=== PATIENT | female | born 1950 | race Caucasian/White ===

== ENCOUNTER 2022-11-01 08:14 | Outpatient (CLI) | payer OTHER | END 2022-11-01 18:54 | disposition home or self-care (01) | LOC: SRD 08:14 | PROVIDERS: ATTEND Family Medicine | DX: I10 Essential (primary) hypertension (principal); I70.0 Atherosclerosis of aorta; Z87.01 Personal history of pneumonia (recurrent) | CPT/HCPCS: 78580; 71046; 78579; A9539; A9540 ==

== ENCOUNTER 2023-03-15 11:56 | Emergency (ER) | payer OTHER ==
[~2023-03-15] VITALS: Ht 167.6 cm; Wt 72.6 kg
[2023-03-15 12:02] VITALS: BP_SYST 145; PULSE 85; RESP 18; TEMP 98.3; O2SAT 98
--- NOTE | 2023-03-15 12:02 | NUR ---
Placed in room 07 . Placed on hospital monitor, blood pressure machine and pulse oximeter. To gown for exam. Side rails up. Report given to Estephanie TEJEDA.
--- NOTE | 2023-03-15 12:10 | NUR ---
Patient BIB son c/o SOB x 3-4 days, worsening this AM. Patient has been in touch with her PCP & brought in a list of tests which were ordered by her PCP but she felt she needed to be seen sooner that she could get in. Patient did a nebulizer tx at home prior to coming in with no reliefof symptoms. Med Hx HTN, DM, HLD. Fingerstick blood sugar check upon arrival 215. made aware. Placed onto O2 at 2 lpm via NC for comfort. Marco is taking Lasix but denies CHF. NKA. VSS.
--- NOTE | 2023-03-15 12:10 | NUR ---
Radiology at bedside, portable chest xray.
[2023-03-15] MEDS ORDERED: IPRATROPIUM BROM 0.5 MG/2.5 ML VIAL.NEB (ATROVENT) INH ONE (12:15)
[2023-03-15] MEDS ORDERED: ALBUTEROL SULFATE 0.083% 2.5 MG/3 ML VIAL.NEB INH ONE (12:15)
--- NOTE | 2023-03-15 12:25 | NUR ---
Urine sample ontained and taken to lab for testing.
--- NOTE | 2023-03-15 12:40 | NUR ---
Phlebotomy at bedside obtaining samples for testing.
[2023-03-15 12:44] LABS: BASOPHILS # (AUTO) 0.1 K/uL (0.0-0.2); BASOPHILS % (AUTO) 0.5 % (0.0-2.0); EOSINOPHILS % (AUTO) 0.2 % (0.0-4.0); HEMATOCRIT 39.7 % (36-48); LYMPHOCYTES # (AUTO) 2.9 K/uL (1.0-5.5); LYMPHOCYTES % (AUTO) 25.2 % (20.5-51.5); MEAN CORPUSCULAR HEMOGLOBIN 30 pg (27-31); MEAN CORPUSCULAR HGB CONC 33 % (32-36); MEAN CORPUSCULAR VOLUME 91 fL (79.0-98.0); MONOCYTES # (AUTO) 0.7 K/uL (0.0-1.0); MONOCYTES % (AUTO) 5.9 % (1.7-9.3); NEUTROPHILS # (AUTO) 7.9 K/uL (1.8-7.7); NEUTROPHILS % (AUTO) 68.2 % (40.0-70.0); PLATELET COUNT (AUTO) 218 K/uL (130-430); RED BLOOD CELL COUNT(AUTO) 4.39 MIL/uL (4.2-6.2); RED CELL DISTRIBUTION WIDTH 14.6 % (9.0-15.0); WHITE BLOOD COUNT (AUTO) 11.6 K/uL (4.8-10.8)
--- NOTE | 2023-03-15 13:00 | NUR ---
PT REMAINS A&OX 4 WITH PATENT AIRWAY AND REPORTS THAT SINCE RECEIVING DUONEB SHE FEELS SO MUCH BETTER. PT HAS CLEAR LUNG SOUNDS BILATERALLY; VSS; SPO2 97% ON RA; PT STILL HAS DYSPNEA WITH SPEAKING OR ON EXERTION. WILL CONTINUE TO CLOSELY MONITOR PT.
[2023-03-15 13:03] LABS: ANION GAP 14 (5-15); CALCIUM 9.2 mg/dL (8.4-11.0); CHLORIDE 105 mmol/L (98-107); CREATININE 1.07 mg/dL (0.55-1.30); GLUCOSE 165 mg/dL (74-106); UREA NITROGEN, BLOOD 18 mg/dL (8-21)
[2023-03-15 13:10] LABS: ALANINE AMINOTRANSFERASE 36 U/L (12-78); ALBUMIN 3.4 g/dL (3.4-4.8); ASPARTATE AMINOTRANSFERASE 16 U/L (10-37); TOTAL BILIRUBIN 0.7 mg/dL (0.0-1.0)
--- NOTE | 2023-03-15 14:02 | NUR ---
PT REMAINS AND MAINTAINING AN SPO2 >95% ON RA; PT HAS DAUGHTER AT BEDSIDE. PT'S COLOR AND TURGOR LOOKS NORMAL.
[2023-03-15] MEDS ORDERED: LORA-259 PO (14:12)
[2023-03-15 14:45] VITALS: BP_SYST 107; PULSE 91; RESP 22; TEMP 98.5; O2SAT 98
== END 2023-03-15 14:45 | disposition home or self-care (01) ==
LOC: SED 11:56
DX: J44.9 Chronic obstructive pulmonary disease, unspecified (principal); F41.0 Panic disorder [episodic paroxysmal anxiety]; R06.02 Shortness of breath; E11.9 Type 2 diabetes mellitus without complications; I10 Essential (primary) hypertension; Z79.899 Other long term (current) drug therapy
CPT/HCPCS: 80053; 83880; 85025; 84484; 36415; 93005; 71045; 94640; 94760; 99285; 83605; J7613